=== PATIENT | male | born 1990 | race Caucasian/White ===

== ENCOUNTER 2020-08-20 09:00 | Outpatient (REF) | payer BC, SELFPAY ==
[2020-08-20 11:41] LABS: Hematocrit 43.7 % (42-52); Hemoglobin 14.3 g/dl (14.0-18.0); Mean Corpuscular HGB Conc 32.7 g/dl (31.0-36.0); Mean Corpuscular Hemoglobin 28.8 pg (27.0-33.0); Mean Corpuscular Volume 87.9 fL (80-98); Mean Platelet Volume 10.4 fL (9.4-12.4); Platelet Count 278 X10*3/uL (160-400); Red Blood Count 4.97 X10*6/uL (4.60-5.80); White Blood Count 8.1 X10*3/uL (4.8-10.8)
[2020-08-20 12:03] LABS: Alanine Aminotransferase 23 U/L (0-40); Albumin Level 4.4 g/dL (3.5-5.0); Alkaline Phosphatase 76 U/L (39-117); Anion Gap 13 (12-20); Aspartate Amino Transferase 18 U/L (5-37); Bilirubin Total 0.7 mg/dL (0.0-1.0); Blood Urea Nitrogen 14 mg/dL (9-16); Calcium 9.5 mg/dL (8.4-10.2); Carbon Dioxide 29 mmol/L (22-29); Chloride 101 mmol/L (96-108); Cholesterol 169 mg/dL; Estimated Glomerular Filt Rate > 60; Glucose Fasting 87 mg/dL (60-99); HDL Cholesterol 40 mg/dL; LDL Cholesterol Calculated 104 mg/dl; Potassium 4.8 mmol/L (3.3-5.1); Sodium 138 mmol/L (135-145); Total Protein 7.4 g/dL (6.5-8.0); Triglycerides 125 mg/dL
== END 2020-08-20 09:01 | disposition home or self-care (01) ==
LOC: HO.HMGCLDS 09:00
PROVIDERS: PCP Internal Medicine; Visit Provider Internal Medicine
DX: Z00.00 Encounter for general adult medical examination without abnormal findings (principal)
CPT/HCPCS: 36415; 80053; 80061; 85027

== ENCOUNTER → 2022-03-31 08:35 | Outpatient (REF) | payer BC, SELFPAY | LOC: HO.SL 08:35 | PROVIDERS: PCP Internal Medicine; Visit Provider Internal Medicine | DX: G47.33 Obstructive sleep apnea (adult) (pediatric) (principal) | CPT/HCPCS: 95806 ==

== ENCOUNTER 2023-10-12 09:02 | Outpatient (AMB) | payer BC, SELFPAY ==
[2023-10-12 09:14] VITALS: BP 134/80; PULSE 73; O2SAT 96; BMI 43.6
--- NOTE | 2023-10-12 09:14 | MHC.PC.OV ---
Vital Signs 10/12/23 09:14 Height 6 ft 2 in Weight 340 lb BMI 43.6 BP 134/80 Blood Pressure Location Lt brachial Position Sitting Pulse 73 Pulse Source Pulse Oximeter Pulse Oximetry (%) 96 Oxygen Delivery Method Room Air Intake Visit Reasons: PE Intake Note: Pt is here today for PE. Allergies amlodipine [AMLODIPINE] Allergy (Unknown, Verified 10/12/23 09:16) RASH Medication List - Last Reconciled 10/12/23 by Dina Pina MD lisinopril 10 mg PO DAILY Tobacco use date assessed: 10/12/23 Dental Screening Dental Screen Date: 10/12/23 Did you have a dental visit in the last 12 months?: Yes Did you have a dental problem in the last 6 months where you did not have access to dental care?: No Was dental information given to patient?: Patient has dentist HPI PE HPI Details Patient presents for physical. He reports intermittent postnasal drip and dry cough tickle like in the back of his throat. He denies shortness or breath or sputum production. Patient reports having low energy level and has been grieving his father who 2 years ago. Patient denies exercise induced shortness of breath or chest pain. 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 1. Little interest or pleasure in doing things: nearly every day 2. Feeling down, depressed, or hopeless: several days 3. Trouble falling or staying asleep, or sleeping too much: not at all 4. Feeling tired or having little energy: more than half the days 5. Poor appetite or overeating: more than half the days 6. Feeling bad about yourself - or that you are a failure or have let yourself or your family down: not at all 7. Trouble concentrating on things, such as reading the newspaper or watching television: not at all 8. Moving or speaking so slowly that other people could have noticed. Or the opposite - being so fidgety or restless that you have been moving around a lot more than usual: not at all 9. Thoughts that you would be better off or of hurting yourself in some way: not at all Total score: 8 Depression Screening Interpretation: Negative Depression Screening Done: Yes Source: Developed by Drs. Adis Osuna, Aurelia Hargrove, Twan Thomas and colleagues, with an educational buddy from [employer]. Thrive Questionnaire Date Thrive assessed: 10/12/23 I am a: Patient What is your living situation today?: I have a steady place to live Within the past 12 months, did the food you bought not last and you didn't have the money to get more?: I choose not to answer this question Within the past 12 months, did you worry whether your food would run out before you got money to buy more?: Never true Do you have trouble paying for medicines?: No Do you have trouble getting transportation to medical appointments?: No Do you have trouble paying your heating and electricity bill?: No Do you have trouble taking care of your child, family member or friend?: No Do you have trouble with day-to-day activities such as bathing, preparing meals, shopping, managing finances, etc.?: No Are you currently unemployed and looking for a job?: No Are you interested in more education?: No Please select the resources that you would like help with: Housing/[facility] Currently or been in a relationship where the following occur: I choose not to answer THRIVE Score: 0 AUDIT C Alcohol Use Questionnaire (AUDIT-C) 1. How often do you have a drink containing alcohol?: Monthly or less 2. How many drinks containing alcohol do you have on a typical day when you are drinking?: 1 or 2 3. How often do you have six or more drinks on one occasion?: Never Total Score: 1 CASSIE-7 AMB Questionnaire CASSIE-7 Date CASSIE - 7 assessed: 10/12/23 Feeling nervous, anxious, or on edge: 1 = Several days Not being able to stop or control worryin = Not at all Worrying too much about different things: 0 = Not at all Trouble relaxin = Not at all Being so restless that it is hard to sit still: 0 = Not at all Becoming easily annoyed or irritable: 2 = More than half the days Feeling afraid as if something awful might happen: 0 = Not at all Total CASSIE-7 score (0-4 normal; 5-9 mild; 10-14 moderate; 15-21 severe): 3 Source: Developed by Drs. Adis Osuna, Aurelia Hargrove, Twan Thomas and colleagues, with an educational buddy from [employer]. Review of Systems Const All systems reviewed & are unremarkable except as noted in HPI and below Reports no additional complaints Eyes Reports no additional complaints ENT Reports no additional complaints Card Reports no additional complaints Resp Reports no additional complaints GI Reports no additional complaints Musc Reports no additional complaints Physical exam (Primary Care) Vital Signs: Last Vital Signs Pulse 73 10/12/23 09:14 BP 134/80 10/12/23 09:14 Pulse Ox 96 10/12/23 09:14 Oxygen Delivery Method Room Air 10/12/23 09:14 BMI result Body Mass Index 43.6 Tobacco/Smoking Status: Tobacco use Status Tobacco use date assessed 10/12/23 10/12/23 09:20 Patient Tobacco Use Status Former Tobacco user 10/12/23 09:14 e-Cigarette/Vaping Use Never Used 10/12/23 09:14 PHQ-9: PHQ-9 Score PHQ-9: Total score 8 10/12/23 09:45 Depression Screening Interpretation: Negative Thrive Assessment: Date of Thrive Assessment Date Thrive assessed 10/12/23 10/12/23 09:20 Currently or been in a relationship where the following occur: I choose not to answer Const General: no acute distress HENMT Head: Yes normal to inspection Ears: hearing grossly normal bilaterally Face and sinus: Yes normal facial exam Mouth: Normal oral and palatal mucosa present Throat: Yes posterior oropharynx normal Eyes General: appearance normal, both eyes and all related structures Neck Neck: Yes no lymphadenopathy and Yes supple Resp Effort & Inspection: normal respiratory effort Auscultation: clear to auscultation bilaterally Cardio Rhythm: regular rhythm Heart sounds: S1 normal heart sound present and S2 normal heart sound present GI Inspection: Yes normal to inspection Palpation (GI): Soft to palpation Percussion: Yes normal to percussion Auscultation: normal bowel sounds Assessment and Plan Assessment & Plan (1) HTN (hypertension): Code(s): I10 - Essential (primary) hypertension Plan: Change lisinopril to valsartan 80 mg follow-up in 2 months (2) Annual physical exam: Code(s): Z00.00 - Encounter for general adult medical examination without abnormal findings Plan: well balanced diet, regular diet, weight loss discussed with the patient. Stress management and mindfulness were discussed. Patient was advised to see a counselor for grieving but he declined. He will have a fasting blood work today Orders: Orders Comprehensive [place]. Panel Fast Today I10 - Essential (primary) hypertension, Z00.00 - Encounter for general adult medical examination without abnormal findings Complete Blood Count Auto Diff Today I10 - Essential (primary) hypertension, Z00.00 - Encounter for general adult medical examination without abnormal findings Lipid Panel Today I10 - Essential (primary) hypertension, Z00.00 - Encounter for general adult medical examination without abnormal findings TSH reflex Free T4 Today I10 - Essential (primary) hypertension, Z00.00 - Encounter for general adult medical examination without abnormal findings UA w Microscopic Today I10 - Essential (primary) hypertension, Z00.00 - Encounter for general adult medical examination without abnormal findings Medications: New valsartan 80 mg PO DAILY 90 tabs 0RF Discontinued lisinopril Discontinued Reason: Doctor's Order 10 mg PO DAILY 90 tabs 3RF Coding Level of Care Code Est Pt Prev Care 18-39y(92502) Diagnoses HTN (hypertension) I10 Annual physical exam Z00.00
== END 2023-10-12 10:09 | disposition home or self-care (01) ==
PROVIDERS: PCP Internal Medicine; Visit Provider Internal Medicine
DX: I10 Essential (primary) hypertension (principal); Z00.00 Encounter for general adult medical examination without abnormal findings
CPT/HCPCS: 99395

== ENCOUNTER 2023-10-12 10:11 | Outpatient (REF) | payer BC, SELFPAY ==
[2023-10-12 13:28] LABS: Appearance Urine Cloudy; Color Urine Yellow; Glucose Urine UA Negative (Negative); Leukocyte Esterase Urine Negative (Negative); Nitrite Urine Negative (Negative); PH 5.5 (5.0-9.0); Urine Blood Negative (Negative); Urine Ketones Negative (Negative); Urine Protein Negative (Neg-Trace)
[2023-10-12 13:29] LABS: MANUAL DIFF FLAG NO
[2023-10-12 13:35] LABS: Bacteria Urine None Seen (None Seen); Hyaline Casts Urine 0-2 /LPF (0-2); RBC Urine 0-2 /HPF (0-2); Squamous Epithelial Cell Urine 0-2 /HPF (0-2); WBC Urine 0-5 /HPF (0-5)
[2023-10-12 13:52] LABS: Basophils Absolute Auto 0.1 X10*3/uL (0.0-0.2); Basophils Percent Auto 0.8 % (0-2); Eosinophils Absolute Auto 0.2 X10*3/uL (0.0-0.4); Eosinophils Percent Auto 1.9 % (0-4); Hematocrit 44.4 % (42.0-52.0); Hemoglobin 14.5 g/dl (14.0-18.0); Imm Gran Abs Auto 0.04 X10*3/uL (0.00-0.03); Imm Gran Pct Auto 0.5 % (0.0-0.4); Lymphocytes Absolute Auto 2.2 X10*3/uL (1.2-4.9); Lymphocytes Percent Auto 28.3 % (20-40); Mean Corpuscular HGB Conc 32.7 g/dl (31.0-36.0); Mean Corpuscular Hemoglobin 28.7 pg (27.0-33.0); Mean Corpuscular Volume 87.7 fL (80.0-98.0); Mean Platelet Volume 10.6 fL (9.4-12.4); Monocytes Absolute Auto 0.8 X10*3/uL (0.1-1.2); Monocytes Percent Auto 9.9 % (2-11); Neutrophils Absolute Auto 4.6 x10*3/uL (2.0-8.3); Neutrophils Percent Auto 58.6 % (45-73); Platelet Count 299 X10*3/uL (160-400); Red Blood Count 5.06 X10*6/uL (4.60-5.80); Red Cell Distribution Width 13.2 % (11.0-16.0); White Blood Count 7.8 X10*3/uL (4.8-10.8)
[2023-10-12 14:16] LABS: Alanine Aminotransferase 29 U/L (0-40); Albumin Level 4.6 g/dL (3.5-5.0); Alkaline Phosphatase 70 U/L (39-117); Anion Gap 11 (12-20); Aspartate Amino Transferase 21 U/L (5-37); Bilirubin Total 0.3 mg/dL (0.0-1.0); Blood Urea Nitrogen 11 mg/dL (9-16); Calcium 9.8 mg/dL (8.4-10.2); Carbon Dioxide 27 mmol/L (22-29); Chloride 104 mmol/L (96-108); Cholesterol 172 mg/dL (<200); Estimated Glomerular Filt Rate > 60; Glucose Fasting 99 mg/dL (60-99); HDL Cholesterol 39 mg/dL (>40); LDL Cholesterol Calculated 117 mg/dL (<100); Potassium 4.3 mmol/L (3.3-5.1); Sodium 138 mmol/L (135-145); Total Protein 8.1 g/dL (6.5-8.0); Triglycerides 84 mg/dL (<150)
[2023-10-12 14:34] LABS: TSH reflex Free T4 2.05 uIU/mL (0.32-4.0)
== END 2023-10-12 10:12 | disposition home or self-care (01) ==
LOC: HO.HMGCLDS 10:11
PROVIDERS: PCP Internal Medicine; Visit Provider Internal Medicine
DX: Z00.00 Encounter for general adult medical examination without abnormal findings (principal); I10 Essential (primary) hypertension
CPT/HCPCS: 36415; 80053; 80061; 81001; 84443; 85025

== ENCOUNTER 2024-01-21 14:39 | Outpatient (AMB) | payer BC, SELFPAY ==
[2024-01-21 14:39] VITALS: BP 126/74; PULSE 80; O2SAT 95; BMI 44.5
--- NOTE | 2024-01-21 14:39 | MHC.PC.OV ---
Vital Signs 01/21/24 14:39 Height 6 ft 2 in Weight 347 lb BMI 44.5 BP 126/74 Blood Pressure Location Lt brachial Position Sitting Pulse 80 Pulse Source Pulse Oximeter Pulse Oximetry (%) 95 Oxygen Delivery Method Room Air Intake Visit Reasons: 6 week follow up Intake Note: Pt is here today for 6 weeks follow up visit on BP. Allergies amlodipine [AMLODIPINE] Allergy (Unknown, Verified 01/21/24 14:41) RASH Medication List - Last Reconciled 01/21/24 by Dina Pina MD valsartan 80 mg PO DAILY Tobacco use date assessed: 01/21/24 Dental Screening Dental Screen Date: 10/12/23 HPI 6 week follow up HPI Details Pt presents for HTN, controlled on valsartan dry cough resolved. Patient complains of achiness over his whole body worse in the morning. He denies joint swelling rash fever chills night sweats. 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 Adis Osuna, Aurelia Hargrove, Twan Thomas and colleagues, with an educational buddy from [employer] Review of Systems Const All systems reviewed & are unremarkable except as noted in HPI and below ENT Reports no additional complaints Card Reports no additional complaints Resp Reports no additional complaints GI Reports no additional complaints Reports no additional complaints Physical exam (Primary Care) Vital Signs: Last Vital Signs Pulse 80 01/21/24 14:39 BP 126/74 01/21/24 14:39 Pulse Ox 95 01/21/24 14:39 Oxygen Delivery Method Room Air 01/21/24 14:39 BMI result Body Mass Index 44.5 Tobacco/Smoking Status: Tobacco use Status Tobacco use date assessed 01/21/24 01/21/24 14:42 Patient Tobacco Use Status Former Tobacco user 01/21/24 14:42 e-Cigarette/Vaping Use Never Used 01/21/24 14:42 Thrive Assessment: Date of Thrive Assessment Date Thrive assessed 10/12/23 01/21/24 14:42 Const General: no acute distress HENMT Face and sinus: Yes normal facial exam Throat: Yes posterior oropharynx normal Resp Effort & Inspection: normal respiratory effort Auscultation: clear to auscultation bilaterally Cardio Rhythm: regular rhythm Heart sounds: S1 normal heart sound present and S2 normal heart sound present Coding Level of Care Code Est Pt Level 3 (43629) Diagnoses HTN (hypertension) I10 Body aches R52 Assessment & Plan Assessment & Plan (1) HTN (hypertension): Code(s): I10 - Essential (primary) hypertension Category: Medical Plan: Continue valsartan follow-up in 6 months (2) Body aches: Code(s): R52 - Pain, unspecified Category: Medical Plan: Stress management mindfulness and regular stretching exercises discussed with the patient Orders: Orders Comprehensive [place]. Panel Fast 6 Months I10 - Essential (primary) hypertension Medications: Refilled valsartan 80 mg PO DAILY 90 tabs 3RF
== END 2024-01-21 15:42 | disposition home or self-care (01) ==
LOC: HO.HMCC 14:39
PROVIDERS: PCP Internal Medicine; Visit Provider Internal Medicine
DX: I10 Essential (primary) hypertension (principal); R52 Pain, unspecified

== ENCOUNTER → 2024-01-21 14:39 | Outpatient (BNVA) | payer BC, SELFPAY | PROVIDERS: PCP Internal Medicine; Visit Provider Internal Medicine ==

== ENCOUNTER 2024-05-20 14:16 | Outpatient (AMB) | payer BC, SELFPAY ==
[2024-05-20 14:35] VITALS: BP 150/90; PULSE 83; TEMP 36.6; O2SAT 97; BMI 44.9
--- NOTE | 2024-05-20 14:35 | A.OFFPC_ITS ---
Vital Signs 05/20/24 14:35 05/20/24 15:13 Height 6 ft 2 in Weight 350 lb BMI 44.9 BP 150/90 H 126/80 Blood Pressure Location Lt brachial Rt brachial Position Sitting Sitting Pulse 83 Pulse Source Pulse Oximeter Temp 97.9 F Temp Source Oral Pulse Oximetry (%) 97 Intake Visit Reasons: 6m follow up Intake Note: pt is here for 6 mon f/up Allergies amlodipine [AMLODIPINE] Allergy (Unknown, Verified 05/20/24 14:35) RASH Medication List - Last Reconciled 05/20/24 by Dina Pina MD valsartan 80 mg PO DAILY Tobacco use date assessed: 05/20/24 Dental Screening Dental Screen Date: 05/20/24 Did you have a dental visit in the last 12 months?: Yes Did you have a dental problem in the last 6 months where you did not have access to dental care?: No Was dental information given to patient?: Patient has dentist HPI 6m follow up HPI Details Patient presents for the follow-up on hypertension. Patient has been trying to take valsartan every day but has been missing medication occasionally. Patient reports a feeling tired getting and restful sleep decreased energy and feeling depressed most days of the week for the last 6 months. Patient denies suicidal or homicidal ideation. 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 1. Little interest or pleasure in doing things: nearly every day 2. Feeling down, depressed, or hopeless: several days 3. Trouble falling or staying asleep, or sleeping too much: nearly every day 4. Feeling tired or having little energy: nearly every day 5. Poor appetite or overeating: nearly every day 6. Feeling bad about yourself - or that you are a failure or have let yourself or your family down: several days 7. Trouble concentrating on things, such as reading the newspaper or watching television: nearly every day 8. Moving or speaking so slowly that other people could have noticed. Or the opposite - being so fidgety or restless that you have been moving around a lot more than usual: several days 9. Thoughts that you would be better off or of hurting yourself in some way: not at all Total score: 18 Depression Screening Interpretation: Positive (Patient will schedule an appointment with a therapist and Wellbutrin 150 mg daily will be started. Patient will follow-up in 1 month) Depression Screening Follow-up: Existing condition Depression Screening Done: Yes 23027 - PHQ-9 Billing: Yes Source: Developed by Drs. Adis Osuna, Aurelia Hargrove, Twan Thomas and colleagues, with an educational buddy from [employer]. Thrive Questionnaire Date Thrive assessed: 05/20/24 I am a: Patient What is your living situation today?: I have a steady place to live Within the past 12 months, did the food you bought not last and you didn't have the money to get more?: Never true Within the past 12 months, did you worry whether your food would run out before you got money to buy more?: Never true Do you have trouble paying for medicines?: No Do you have trouble getting transportation to medical appointments?: No Do you have trouble paying your heating and electricity bill?: No Do you have trouble taking care of your child, family member or friend?: No Do you have trouble with day-to-day activities such as bathing, preparing meals, shopping, managing finances, etc.?: No Are you currently unemployed and looking for a job?: No Are you interested in more education?: No Please select the resources that you would like help with: None Currently or been in a relationship where the following occur: No concerns reported THRIVE Score: 0 AUDIT C Alcohol Use Questionnaire (AUDIT-C) 1. How often do you have a drink containing alcohol?: Never 3. How often do you have six or more drinks on one occasion?: Never Total Score: 0 Score Reviewed/Action Taken: Yes CASSIE-7 AMB Questionnaire CASSIE-7 Date CASSIE - 7 assessed: 05/20/24 Feeling nervous, anxious, or on edge: 2 = More than half the days Not being able to stop or control worryin = Several days Worrying too much about different things: 1 = Several days Trouble relaxin = Several days Being so restless that it is hard to sit still: 0 = Not at all Becoming easily annoyed or irritable: 2 = More than half the days Feeling afraid as if something awful might happen: 0 = Not at all Total CASSIE-7 score (0-4 normal; 5-9 mild; 10-14 moderate; 15-21 severe): 7 Source: Developed by Drs. Adis Osuna, Aurelia Hargrove, Twan Thomas and colleagues, with an educational buddy from [employer]. CASSIE-7 Assessment Billing CASSIE-7 Assessment Tool: CASSIE-7 Assessment 05185 Review of Systems Const All systems reviewed & are unremarkable except as noted in HPI and below Eyes Reports no additional complaints ENT Reports no additional complaints Card Reports no additional complaints Resp Reports no additional complaints GI Reports no additional complaints Reports no additional complaints Physical exam (Primary Care) Vital Signs: Last Vital Signs Temp 97.9 F 05/20/24 14:35 Pulse 83 05/20/24 14:35 BP 150/90 H 05/20/24 14:35 Pulse Ox 97 05/20/24 14:35 BMI result Body Mass Index 44.9 Tobacco/Smoking Status: Tobacco use Status Tobacco use date assessed 05/20/24 05/20/24 14:38 Patient Tobacco Use Status Former Tobacco user 05/20/24 14:38 e-Cigarette/Vaping Use Never Used 05/20/24 14:38 PHQ-9: PHQ-9 Score PHQ-9: Total score 18 05/20/24 14:38 Depression Screening Interpretation: Positive (Patient will schedule an appointment with a therapist and Wellbutrin 150 mg daily will be started. Patient will follow-up in 1 month) Depression Screening Follow-up: Existing condition Thrive Assessment: Date of Thrive Assessment Date Thrive assessed 05/20/24 05/20/24 14:38 Currently or been in a relationship where the following occur: No concerns reported Const General: no acute distress HENMT Head: Yes normal to inspection Resp Effort & Inspection: normal respiratory effort Auscultation: clear to auscultation bilaterally Cardio Rhythm: regular rhythm Heart sounds: S1 normal heart sound present and S2 normal heart sound present Coding Level of Care Code Est Pt Level 4 (21080) Diagnoses HTN (hypertension) I10 Depression with anxiety F41.8 Additional Codes CASSIE-7 Assessment Billing - CASSIE-7 Assessment Tool: CASSIE-7 Assessment 76878 ([id number]) PHQ-9 - 92891 - PHQ-9 Billing: Yes ([id number]) Assessment & Plan Assessment & Plan (1) HTN (hypertension): Code(s): I10 - Essential (primary) hypertension Category: Medical Plan: Medication compliance discussed with the patient continue valsartan 80 mg daily, increase physical activity decrease caloric intake weight loss discussed with the patient , he will return in 6 months for physical with a fasting labs (2) Depression with anxiety: Code(s): F41.8 - Other specified anxiety disorders Category: Medical Plan: Patient will schedule an appointment with a counselor. Increasing physical activity mindfulness discussed with the patient. Wellbutrin XL 150 DAILY WILL BE STARTED. Patient will follow-up within a month or as needed Orders: Orders Complete Blood Count Auto Diff 6 Months I10 - Essential (primary) hypertension, Z00.00 - Encounter for general adult medical examination without abnormal findings Comprehensive [place]. Panel Fast 6 Months I10 - Essential (primary) hypertension, Z00.00 - Encounter for general adult medical examination without abnormal findings UA w Microscopic 6 Months I10 - Essential (primary) hypertension, Z00.00 - Encounter for general adult medical examination without abnormal findings Lipid Panel 6 Months I10 - Essential (primary) hypertension, Z00.00 - Encounter for general adult medical examination without abnormal findings TSH reflex Free T4 6 Months I10 - Essential (primary) hypertension, Z00.00 - Encounter for general adult medical examination without abnormal findings Medications: New bupropion HCl XL (Wellbutrin XL) 150 mg PO QAM 90 tabs 0RF
[2024-05-20 15:13] VITALS: BP 126/80
== END 2024-05-20 15:47 | disposition home or self-care (01) ==
PROVIDERS: PCP Internal Medicine; Visit Provider Internal Medicine
DX: I10 Essential (primary) hypertension (principal); F41.8 Other specified anxiety disorders

== ENCOUNTER → 2024-05-20 14:16 | Outpatient (BNVA) | payer BC, SELFPAY | PROVIDERS: PCP Internal Medicine; Visit Provider Internal Medicine | DX: I10 Essential (primary) hypertension (principal); F41.8 Other specified anxiety disorders; Z79.899 Other long term (current) drug therapy | CPT/HCPCS: 96127 ==

== ENCOUNTER 2024-11-18 12:31 | Outpatient (REF) | payer BC, SELFPAY ==
--- NOTE | ~2024-11-18 | XR_ITS ---
EXAMINATION: XR KNEE, RIGHT CLINICAL INFORMATION: M25.561 - Pain in right knee COMPARISON: Correlated to x-ray dated December 31, 2018. TECHNIQUE: AP and lateral views of the right knee. FINDINGS: No acute cortical disruption or malalignment. No gross suprapatellar bursa joint effusion. No lytic or blastic lesions. 3 mm calcific/radiopaque structure in the soft tissues of the anterior lower right thigh, unchanged. XR/XR knee RT 2V IMPRESSION: No acute fracture or dislocation. No gross change. Electronically signed by: Fortunato Ceja MD 11/18/2024 02:20 PM EDT
== END 2024-11-18 12:32 | disposition home or self-care (01) ==
LOC: HO.HMGCX 12:31
PROVIDERS: PCP Internal Medicine; Visit Provider Internal Medicine
DX: M25.561 Pain in right knee (principal); I10 Essential (primary) hypertension; F41.8 Other specified anxiety disorders
CPT/HCPCS: 73560; 96127

== ENCOUNTER 2024-11-18 12:31 | Outpatient (AMB) | payer BC, SELFPAY ==
--- NOTE | 2024-11-18 12:33 | MHC.PC.OV ---
Vital Signs 11/18/24 12:34 Height 6 ft 2 in Weight 350 lb BMI 44.9 Respiration 20 Pulse 82 Pulse Source Pulse Oximeter Temp 98.3 F Temp Source Oral Pulse Oximetry (%) 96 Oxygen Delivery Method Room Air Intake Visit Reasons: 6m follow up Intake Note: Pt is here today for 6 months follow up visit. Allergies amlodipine (AMLODIPINE) Allergy (Unknown, Verified 11/18/24 12:38) RASH Medication List - Last Reconciled 11/18/24 by Dina Pina MD valsartan 80 mg PO DAILY Tobacco use date assessed: 11/18/24 Dental Screening Dental Screen Date: 05/20/24 HPI 6m follow up HPI Details Pt presents for f/u HTN. Patient has been more compliant taking valsartan. He tried bupropion for depression without significant improvement. Patient is interested in seeing a counselor. He reports decreased energy and interest in his work , he has been working 12 hours a day. Patient denies change in appetite or insomnia , suicide or homicide ideation. Patient complains of chronic right knee pain worse when walking up or down the stairs or standing for long time. He denies any pain at rest. 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 1. Little interest or pleasure in doing things: nearly every day 2. Feeling down, depressed, or hopeless: more than half the days 3. Trouble falling or staying asleep, or sleeping too much: more than half the days 4. Feeling tired or having little energy: nearly every day 5. Poor appetite or overeating: more than half the days 6. Feeling bad about yourself - or that you are a failure or have let yourself or your family down: more than half the days 7. Trouble concentrating on things, such as reading the newspaper or watching television: more than half the days 8. Moving or speaking so slowly that other people could have noticed. Or the opposite - being so fidgety or restless that you have been moving around a lot more than usual: more than half the days 9. Thoughts that you would be better off or of hurting yourself in some way: not at all Total score: 18 Depression Screening Interpretation: Positive (Referred to shelby jeong patient is not in taking medications) Depression Screening Follow-up: Existing condition Depression Screening Done: Yes 93002 - PHQ-9 Billing: Yes Source: Developed by Drs. Adis Osuna, Aurelia Hargrove, Twan Thomas and colleagues, with an educational buddy from [employer] Thrive Questionnaire Date Thrive assessed: 05/20/24 I am a: Patient What is your living situation today?: I have a steady place to live Within the past 12 months, did the food you bought not last and you didn't have the money to get more?: Never true Within the past 12 months, did you worry whether your food would run out before you got money to buy more?: Never true Do you have trouble paying for medicines?: No Do you have trouble getting transportation to medical appointments?: No Do you have trouble paying your heating and electricity bill?: No Do you have trouble taking care of your child, family member or friend?: No Do you have trouble with day-to-day activities such as bathing, preparing meals, shopping, managing finances, etc.?: No Are you currently unemployed and looking for a job?: No Are you interested in more education?: No Please select the resources that you would like help with: None Currently or been in a relationship where the following occur: No concerns reported THRIVE Score: 0 AUDIT C Alcohol Use Questionnaire (AUDIT-C) 3. How often do you have six or more drinks on one occasion?: Never Total Score: 0 CASSIE-7 AMB Questionnaire CASSIE-7 Date CASSIE - 7 assessed: 11/18/24 Feeling nervous, anxious, or on edge: 3 = Nearly every day Not being able to stop or control worryin = More than half the days Worrying too much about different things: 3 = Nearly every day Trouble relaxin = Nearly every day Being so restless that it is hard to sit still: 1 = Several days Becoming easily annoyed or irritable: 2 = More than half the days Feeling afraid as if something awful might happen: 2 = More than half the days Total CASSIE-7 score (0-4 normal; 5-9 mild; 10-14 moderate; 15-21 severe): 16 Source: Developed by Drs. Adis Osuna, Aurelia Hargrove, Twan Thomas and colleagues, with an educational buddy from [employer]. CASSIE-7 Assessment Billing CASSIE-7 Assessment Tool: CASSIE-7 Assessment 69859 Review of Systems Const All systems reviewed & are unremarkable except as noted in HPI and below Eyes Reports no additional complaints ENT Reports no additional complaints Card Reports no additional complaints Resp Reports no additional complaints GI Reports no additional complaints Reports no additional complaints Physical exam (Primary Care) Vital Signs: Last Vital Signs Temp 98.3 F 11/18/24 12:34 Pulse 82 11/18/24 12:34 Resp 20 11/18/24 12:34 Pulse Ox 96 11/18/24 12:34 Oxygen Delivery Method Room Air 11/18/24 12:34 BMI result Body Mass Index 44.9 Tobacco/Smoking Status: Tobacco use Status Tobacco use date assessed 11/18/24 11/18/24 12:42 Patient Tobacco Use Status Former Tobacco user 11/18/24 12:34 e-Cigarette/Vaping Use Never Used 11/18/24 12:34 PHQ-9: PHQ-9 Score PHQ-9: Total score 18 11/18/24 13:48 Depression Screening Interpretation: Positive (Referred to shelby jeong patient is not in taking medications) Depression Screening Follow-up: Existing condition Thrive Assessment: Date of Thrive Assessment Date Thrive assessed 05/20/24 11/18/24 12:34 Currently or been in a relationship where the following occur: No concerns reported Const General: no acute distress [facility] Head: Yes normal to inspection Ears: hearing grossly normal bilaterally Face and sinus: Yes normal facial exam Mouth: Normal oral and palatal mucosa present Eyes General: appearance normal, both eyes and all related structures Neck Neck: Yes no lymphadenopathy and Yes supple Resp Effort & Inspection: normal respiratory effort Auscultation: clear to auscultation bilaterally Cardio Rhythm: regular rhythm Heart sounds: S1 normal heart sound present and S2 normal heart sound present GI Palpation (GI): Soft to palpation Percussion: Yes normal to percussion Auscultation: normal bowel sounds Extrem Other: Right knee with slight crepitus no soft tissue swelling erythema or warmth, there is decreased range of motion medial aspect tenderness Coding Level of Care Code Est Pt Level 4 (22260) Diagnoses HTN (hypertension) I10 Depression with anxiety F41.8 Knee pain, right M25.561 Additional Codes CASSIE-7 Assessment Billing - CASSIE-7 Assessment Tool: CASSIE-7 Assessment 32655 ([id number]) PHQ-9 - 29440 - PHQ-9 Billing: Yes ([id number]) Assessment & Plan Assessment & Plan (1) HTN (hypertension): Code(s): I10 - Essential (primary) hypertension Category: Medical Plan: Medication compliance discussed with the patient he will continue valsartan and low-sodium diet, he will follow-up in 6 months with a fasting labs before (2) Depression with anxiety: Comment: Bupropion not effective, referred to counseling Code(s): F41.8 - Other specified anxiety disorders Category: Medical Plan: Patient will be referred to a counselor (3) Knee pain, right: Code(s): M25.561 - Pain in right knee Category: Medical Plan: For chronic right knee pain obtain x-ray and referred to physical therapy Orders: Orders Complete Blood Count Auto Diff Today F41.8 - Other specified anxiety disorders, I10 - Essential (primary) hypertension, Z00.00 - Encounter for general adult medical examination without abnormal findings Lipid Panel Today F41.8 - Other specified anxiety disorders, I10 - Essential (primary) hypertension, Z00.00 - Encounter for general adult medical examination without abnormal findings Comprehensive [place]. Panel Fast Today F41.8 - Other specified anxiety disorders, I10 - Essential (primary) hypertension, Z00.00 - Encounter for general adult medical examination without abnormal findings TSH reflex Free T4 Today F41.8 - Other specified anxiety disorders, I10 - Essential (primary) hypertension, Z00.00 - Encounter for general adult medical examination without abnormal findings UA w Microscopic Today F41.8 - Other specified anxiety disorders, I10 - Essential (primary) hypertension, Z00.00 - Encounter for general adult medical examination without abnormal findings XR knee RT 2V Today M25.561 - Pain in right knee PT Evaluation and Treatment Today M25.561 - Pain in right knee Medications: Refilled valsartan 80 mg PO DAILY 90 tabs 3RF
[2024-11-18 12:34] VITALS: PULSE 82; RESP 20; TEMP 36.8; O2SAT 96; BMI 44.9
== END 2024-11-18 13:51 | disposition home or self-care (01) ==
LOC: HO.HMCC 12:32
PROVIDERS: PCP Internal Medicine; Visit Provider Internal Medicine
DX: I10 Essential (primary) hypertension (principal); F41.8 Other specified anxiety disorders; M25.561 Pain in right knee

== ENCOUNTER → 2024-11-18 14:00 | Outpatient (BNV) | payer BC, SELFPAY | PROVIDERS: PCP Internal Medicine; Visit Provider Radiology Diagnostic Radiology | DX: M25.561 Pain in right knee (principal) | CPT/HCPCS: 73560 ==

== ENCOUNTER 2024-12-08 14:01 | Outpatient (REF) | payer BC, SELFPAY ==
--- NOTE | ~2024-12-08 | XR_ITS ---
EXAMINATION: XR RIBS, LEFT CLINICAL INFORMATION: R07.89 - Other chest pain ; left-sided chest pain after hearing a pop while forcefully sneezing. COMPARISON: 12/16/2018 TECHNIQUE: PA view of the chest, and 3 views of the left ribs were obtained. FINDINGS: Lungs are clear. No consolidation, pneumothorax, or pleural effusion. The cardiomediastinal silhouette and pulmonary vasculature are normal. Osseous structures are unremarkable. Ribs are intact. No fractures are identified. XR/XR ribs LT min 3V w CXR1V IMPRESSION: No acute findings in the thorax. No definitive displaced rib fracture identified. Electronically signed by: Niall Bernal MD 12/08/2024 02:56 PM EDT
== END 2024-12-08 14:02 | disposition home or self-care (01) ==
LOC: HO.HMGCX 14:01
PROVIDERS: PCP Internal Medicine; Visit Provider Nurse Practitioner Family
DX: R07.81 Pleurodynia (principal)
CPT/HCPCS: 71101

== ENCOUNTER 2024-12-08 14:01 | Outpatient (AMB) | payer BC, SELFPAY ==
[2024-12-08 14:05] VITALS: BP 144/74; PULSE 88; TEMP 37.2; O2SAT 97; BMI 45.7
--- NOTE | 2024-12-08 14:05 | AM.OFFWIN_ITS ---
Intake Vital Signs 12/08/24 14:05 Height 6 ft 2 in Weight 356 lb BMI 45.7 BP 144/74 H Blood Pressure Location Lt brachial Position Sitting Pulse 88 Pulse Source Pulse Oximeter Temp 98.9 F Temp Source Oral Pulse Oximetry (%) 97 Oxygen Delivery Method Room Air Intake Visit Reasons: ep sneezed while siting up felt a pop on left side Intake Note: pt presents with left rib pain radiating around to left back from a forceful sneeze Patient Tobacco Use Status: Former Tobacco user Allergies amlodipine (AMLODIPINE) Allergy (Unknown, Verified 12/08/24 14:10) RASH Do you need a note to return to daycare/school/sports/work: No HPI HPI Comments History of Present Illness Details 34 y/o Male patient who presents to the walk in clinic with c/o Left sided chest wall pain radiating to his Mid Back. Reports that he sneezed really hard then felt a POP with sharp pain. Denies SOB, CP or Wheezing. 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7 Const General: no acute distress Nutritional Appearance: obese morbidly obese Orientation/consciousness: patient oriented x3 Resp Effort & Inspection: normal respiratory effort Auscultation: clear to auscultation bilaterally, no crackles, no rales, no rhonchi and no wheezes Cardio Heart sounds: S1 normal heart sound present and S2 normal heart sound present GI Other: Exam limited to Patient;s Large Body Habitus. Inspection: Yes Abdominal panniculus present and Yes obesity Palpation (GI): Soft to palpation, not firm, Tenderness to palpation present (GI) in the LUQ, no guarding and not rigid Auscultation: normal bowel sounds Back/Spine/Pelvis Thoracic/Lumbar Spine: thoraco-lumbar ROM normal, paraspinal muscle tenderness and thoracic spinal tenderness Neuro General: patient oriented x3, gait normal and moves all extremities Psych Speech and movement: Normal speech and movement present Assessment & Plan Assessment & Plan (1) Chest wall pain: Code(s): R07.89 - Other chest pain Plan: Muscular Strain vs Sprain Ordered Chest Xray with Ribs NSAIDs for pain relief. Apply Ice/Heat for pain relief. Advised to go to ED symptoms worse. Orders: Orders XR ribs LT min 3V w CXR1V Today R07.89 - Other chest pain Medications: New naproxen 500 mg PO BID 20 tabs 0RF R07.89 - Other chest pain cyclobenzaprine 10 mg PO BEDTIME 14 tabs 0RF R07.89 - Other chest pain lidocaine 5% leave on most painful area for up to 12 hrs 1 patch topical DAILY 30 ea 0RF R07.89 - Other chest pain Coding Level of Care Code Est Pt Level 4 (22840) Diagnoses Chest wall pain R07.89 Time Spent (min) 20
== END 2024-12-08 14:31 | disposition home or self-care (01) ==
PROVIDERS: PCP Internal Medicine; Visit Provider Nurse Practitioner Family
DX: R07.89 Other chest pain (principal)

== ENCOUNTER → 2024-12-08 14:32 | Outpatient (BNV) | payer BC, SELFPAY | PROVIDERS: PCP Internal Medicine; Visit Provider Radiology Diagnostic Radiology | DX: R07.89 Other chest pain (principal) | CPT/HCPCS: 71101 ==

== ENCOUNTER 2025-01-11 16:11 | Outpatient (AMB) | payer BC, SELFPAY ==
--- NOTE | 2025-01-11 16:16 | MHC.OFFWIV ---
Intake Vital Signs 01/11/25 16:17 Height 6 ft 2 in Weight 356 lb BMI 45.7 BP 142/80 H Blood Pressure Location Lt brachial Position Sitting Pulse 81 Pulse Source Pulse Oximeter Temp 98.3 F Temp Source Oral Pulse Oximetry (%) 98 Oxygen Delivery Method Room Air Intake Visit Reasons: EP alllergic reaction to poison rachel, face swelling Patient Tobacco Use Status: Former Tobacco user Allergies amlodipine (AMLODIPINE) Allergy (Unknown, Verified 01/11/25 16:17) RASH Do you need a note to return to daycare/school/sports/work: Yes HPI HPI Comments History of Present Illness Details History of Present Illness - The patient is a 34-year-old male presenting with allergic contact dermatitis due to poison rachel exposure. 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 - The patient reports being highly allergic to poison rachel, experiencing symptoms upon inhalation or contact. - This episode is the worst he has experienced, with previous occurrences about six times this year, usually presenting as small patches. - Currently, the rash is extensive, affecting the face, hairline, ears, and nose, exacerbated by wearing a hard hat and glasses. Review of Systems - Dermatological: Reports extensive rash on face, hairline, ears, and nose due to poison rachel exposure. Physical Exam General: Cooperative, healthy appearing, comfortable, no acute distress and well developed Orientation: Patient oriented x3 Limitations: No limitations Head: Normal to inspection Neck: Normal visual inspection and Yes full ROM Respiratory: Normal respiratory effort and able to speak in complete sentences. Clear to auscultation throughout, no wheezes, rales and rhonchi. Skin: raised maculopapular erythematous rash on forehead, around b/l eyes, b/l cheeks and neck up to his b/l ears, spots on bilateral arms Neuro: Patient oriented x3, gait normal Extremities: Normal to inspection [facility] Medical History (Updated 12/08/24 @ 14:27 by Ruth Garcias NP) Chest wall pain Knee pain, right Overweight Depression with anxiety Annual physical exam HTN (hypertension) Right knee dislocation Surgical History No pertinent past surgical history Family History Father HTN (hypertension) Mother Substance use disorder Social History Household 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:: , 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, 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 Alcohol intake: current Alcohol intake frequency: a few times a week Patient Tobacco Use Status: Former Tobacco user e-Cigarette/Vaping Use: Never Used service: No Current occupational status: employed Cognitive needs: No Hearing needs: No Vision needs: No Physical Exam Vital Signs: Last Vital Signs Temp 98.3 F 01/11/25 16:17 Pulse 81 01/11/25 16:17 BP 142/80 H 01/11/25 16:17 Pulse Ox 98 01/11/25 16:17 Oxygen Delivery Method Room Air 01/11/25 16:17 BMI result Body Mass Index 45.7 Assessment & Plan Assessment & Plan (1) Allergic contact dermatitis: Code(s): L23.9 - Allergic contact dermatitis, unspecified cause Qualifiers: Contact dermatitis trigger: non-food plants Qualified Code(s): L23.7 - Allergic contact dermatitis due to plants, except food Plan: Assessment and Plan Allergic contact dermatitis due to poison rachel exposure - Initiate oral prednisone with a tapering dose starting at 60 mg for three days, followed by 40 mg for three days, and 20 mg for four days to manage inflammation and symptoms. - Apply hydrocortisone cream to affected areas, avoiding thin skin around the eyes to prevent complications. - Consider taking Benadryl at night for its sedative effects and Pepcid as an H2 kayley to assist with allergic symptoms. Medications: New prednisone On days 1-3, take 3 tablets with breakfast. On days 4-6 take 2 tablets with breakfast, on days 7-10 take 1 tablet with breakfast 20 mg PO daily 19 tabs 0RF Coding Level of Care Code Est Pt Level 3 (89621) Diagnoses Allergic contact dermatitis due to plants, except food L23.7 Contact dermatitis trigger: non-food plants
[2025-01-11 16:17] VITALS: BP 142/80; PULSE 81; TEMP 36.8; O2SAT 98; BMI 45.7
== END 2025-01-11 16:34 | disposition home or self-care (01) ==
PROVIDERS: PCP Internal Medicine; Visit Provider Physician Assistant
DX: L23.7 Allergic contact dermatitis due to plants, except food (principal)

== ENCOUNTER 2025-01-13 10:46 | Outpatient (RCR) | payer BC, SELFPAY ==
--- NOTE | 2025-01-13 11:46 | MHC.PT.EP ---
[facility] [place] Office [place] Office [place] Office [address] Cheryle Carney [address] [phone] F: [phone] F: [phone] F: [phone] F: [phone] Physical Therapy Plan of Care Date of Evaluation: 01/13/25 Date of Surgery: n/a Diagnosis: pain in R knee Assessment: Patient is a 34 year old male presenting to PT with complaints of pain in his R knee. Pt reports onset of pain began about 1 year ago due to insidious onset. He presents today with impairments in pain, knee ROM, tenderness to hs tendons and adductors, hip strength, knee strength. 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 Pt expresses superintendent terminal goal of reducing pain, and is motivated to work towards this in PT. Clinical presentation today is most consistent with signs and sx associated with R knee pain and pt will benefit from skilled PT 2 week x 4 weeks to address the following problems and impairments noted upon evaluation: pain, knee ROM, tenderness to hs tendons and adductors, hip strength, knee strength. These problems limit the patient with the following functional activities: ambulating, work, stair negotiation, squatting. The prescribed treatment plan of care is medically necessary. Co-morbidities of depression, anxiety were identified and taken into considerations of plan of care. Pt was educated on HEP, role of PT, prognosis, POC. Frequency and Duration: The patient will be seen 2 x week x 4 weeks Short Term Goals: Pt will demonstrate R knee flexion to 110 in 2 weeks. Pt will demonstrate min to no tenderness to palpation over hs tendons and distal adductors in 2 weeks. Pt will demonstrate improved hip MMT strength by 1/3 grade in 2 weeks. Pt will demonstrate improved R knee MMT strength to 5/5 in 2 weeks. Group Home Goals: Pt will demonstrate improved LEFI score by 9 points in 4 weeks for improved functional mobility. Pt will demonstrate ability to work a full day with min to no pain in 4 weeks for return to PLOF. Pt will demonstrate ability to squat with min to no pain in 4 weeks for improved tolerance to work and ADLs. Treatment Plan: Modalities to reduce pain, spasms and effusion. Manual therapy to restore motion and function. Therapeutic exercise to improve strength and flexibility. Neuromuscular re-education for posture and balance. Therapeutic activities to return to functional activities of daily living. Electronically signed by: Susana Lopez, PT, DPT, ATC Please sign and return to therapist. Thank you for your referral.
--- NOTE | 2025-01-19 15:19 | MHC.PT.DC ---
[facility] [place] Office [place] Office [place] Office [address] Cheryle Carney [address] [phone] F: [phone] F: [phone] F: [phone] F: [phone] Physical Therapy Discharge Report Diagnosis: pain in R knee Date of Surgery: n/a Date of Evaluation: 01/13/25 Date of Discharge: 01/19/25 Treatments to Date: 1 Cancellations to Date: 0 No Shows to Date: 3 Discharge Status: Visit Non-compliance Discharge Summary: Pt has failed to comply [place] [facility] [place] and no showed his first scheduled eval as well as his first 2 scheduled follow ups. Pt to be d/c per attendance policy. Electronically signed by: Susana Lopez, PT, DPT, ATC Please sign and return to therapist. Thank you for your referral.
== END 2025-01-19 15:20 | disposition home or self-care (01) ==
LOC: HO.PTCHIC 10:46
PROVIDERS: PCP Internal Medicine; Visit Provider Internal Medicine
DX: M25.561 Pain in right knee (principal)
CPT/HCPCS: 97110; 97161